=== PATIENT | male | born 2000 | race Caucasian/White ===

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

== ENCOUNTER 2023-04-09 01:43 | Observation (INO) | payer OTHER ==
[2023-04-09 02:03] LABS: Glucose,Whole Blood 134 mg/dL (70-110)
[2023-04-09 02:52] LABS: Basophils % (A) 0 %; Eosinophils # (A) 0.1 k/uL (0-0.7); Eosinophils % (A) 1 %; HCT 39.5 % (39.0-53.0); HGB 14.2 gm/dL (13.0-17.5); Lymphocytes # (A) 1.9 k/uL (1.0-4.8); Lymphocytes % (A) 13 %; MCH 31.9 pg (25.0-35.0); MCHC 35.9 g/dL (31.0-37.0); MCV 88.7 fL (80.0-100.0); Mean Platelet Volume 9.3; Monocytes # (A) 0.8 k/uL (0-1.0); Monocytes % (A) 5 %; Neutrophils # (A) 11.1 k/uL (1.3-7.7); Neutrophils % (A) 79 %; Platelet Count 225 k/uL (150-450); RBC 4.45 m/uL (4.30-5.90); RDW 12.2 % (11.5-15.5); WBC 14.1 k/uL (3.8-10.6)
[2023-04-09 02:55] LABS: ALT 19 U/L (4-49); AST 22 U/L (17-59); African American GFR (CKD) >90 (>60 ml/min/1.73 sqM); Albumin 4.5 g/dL (3.5-5.0); Alkaline Phosphatase 61 U/L (38-126); Amylase 70 U/L (30-110); Anion Gap 11 mmol/L; Blood Urea Nitrogen 16 mg/dL (9-20); Calcium 9.9 mg/dL (8.4-10.2); Carbon Dioxide 20 mmol/L (22-30); Chloride 104 mmol/L (98-107); Glucose 128 mg/dL (74-99); Lipase 93 U/L (23-300); Non-African American GFR(CKD) >90 (>60 ml/min/1.73 sqM); Potassium 3.6 mmol/L (3.5-5.1); Sodium 135 mmol/L (137-145); Total Bilirubin 0.7 mg/dL (0.2-1.3); Total Protein 7.2 g/dL (6.3-8.2)
[2023-04-09] MEDS: MORPHINE SULFATE 4 MG/ML SYRINGE IV STA (04:12)
--- NOTE | 2023-04-09 04:21 | CT ---
EXAMINATION TYPE: CT abdomen pelvis wo con DATE OF EXAM: 04/09/2023 HISTORY: Pt. c/o lower abdominal pain x1 day with intermittent N/V CT DLP: 390.3 mGycm. Automated Exposure Control for Dose Reduction was Utilized. TECHNIQUE: CT scan of the abdomen and pelvis is performed without oral or IV contrast. COMPARISON: NONE FINDINGS: Within the limitations of a non-contrast study, the following observations are made. LUNG BASES: No significant abnormality is appreciated. LIVER/GB: No significant abnormality is appreciated. PANCREAS: No significant abnormality is seen. SPLEEN: No significant abnormality is seen. ADRENALS: No significant abnormality is seen. KIDNEYS: No renal stones or hydronephrosis is seen bilaterally. BOWEL: No abnormal small or large bowel dilatation. Terminal ileum within normal limits on coronal im age 28. Appendix is abnormal with 12 mm appendicolith at the base. Appendix is dilated up to 16 mm ax ial image 85 with minimal adjacent fat stranding. No well-formed fluid collection or abscess. Slight tapering towards the tip. No free or mesenteric air. GENITAL ORGANS: No gross abnormality seen. LYMPH NODES: No greater than 1cm abdominal or pelvic lymph nodes are appreciated. OSSEOUS STRUCTURES: No significant abnormality is seen. OTHER: No significant additional abnormality is seen. IMPRESSION: CT findings consistent with uncomplicated acute appendicitis as detailed above. Critical results communicated to the ordering emergency room physician via telephone at time of dicta tion.
[2023-04-09] MEDS: AMPICILLIN-SULBACTAM 3 GM in SODIUM CHLORIDE 0.9% 100 ML IVPB STA (04:31)
[2023-04-09] MEDS: ONDANSETRON 4 MG/2 ML VIAL IVP STA (04:31)
[2023-04-09] MEDS: SODIUM CHLORIDE 0.9% 1,000 ML IV ONE ×2 (04:32→09:11)
[2023-04-09] MEDS ORDERED: NALOXONE 0.4 MG/ML 1 ML VIAL IV PRN (05:07)
[2023-04-09] MEDS ORDERED: ONDANSETRON 4 MG/2 ML VIAL IVP PRN (05:07)
[2023-04-09] MEDS: SODIUM CHLORIDE 0.9% 1,000 ML IV SCH (05:34)
[2023-04-09] MEDS: MORPHINE SULFATE 4 MG/ML SYRINGE IV PRN (05:43)
--- NOTE | 2023-04-09 07:16 | ED ---
Abdominal Pain HPI - General Chief Complaint: Abdominal Pain Stated Complaint: abd pain N/V Time Seen by Provider: 04/09/23 03:39 Source: patient Mode of arrival: ambulatory Limitations: no limitations - History of Present Illness MD Complaint: abdominal pain Onset/Timin -: hour(s) Location: RLQ Radiation: none Migration to: RLQ Severity: moderate Quality: aching Consistency: constant Improves With: nothing Worsens With: movement Associated Symptoms: nausea - Related Data Home Medications Medication Instructions Recorded Confirmed Azithromycin [Zithromax Z-pack] See Taper PO DIRECTED 05/26/16 05/26/16 Ibuprofen [Motrin] 200 - 400 mg PO Q6HR PRN 05/26/16 05/26/16 Allergies Allergy/AdvReac Type Severity Reaction Status Date / Time No Known Allergies Allergy Verified 05/26/16 20:22 Review of Systems ROS Statement: Those systems with pertinent positive or pertinent negative responses have been documented in the HPI. ROS Other: All systems not noted in ROS Statement are negative. Constitutional: Denies: fever, chills, weakness Respiratory: Denies: cough, dyspnea Cardiovascular: Denies: chest pain, palpitations, edema Gastrointestinal: Reports: abdominal pain, nausea, vomiting. Denies: diarrhea, constipation, hematemesis, melena, hematochezia Genitourinary: Denies: dysuria, hematuria Musculoskeletal: Denies: back pain Skin: Denies: rash Neurological: Denies: headache, weakness, numbness Past Medical History Past Medical History: No Reported History History of Any Multi-Drug Resistant Organisms: None Reported Past Surgical History: No Surgical Hx Reported Past Psychological History: No Psychological Hx Reported Smoking Status: Never smoker Past Alcohol Use History: None Reported Past Drug Use History: None Reported General Exam Limitations: no limitations General appearance: alert, in no apparent distress Head exam: Present: atraumatic, normocephalic Eye exam: Present: normal appearance. Absent: scleral icterus, conjunctival injection Neck exam: Present: normal inspection. Absent: full ROM Respiratory exam: Present: normal lung sounds bilaterally. Absent: respiratory distress, wheezes, rales, rhonchi, stridor Cardiovascular Exam: Present: regular rate, normal rhythm, normal heart sounds. Absent: systolic murmur, diastolic murmur, rubs, gallop GI/Abdominal exam: Present: soft, tenderness, guarding. Absent: distended, rigid, mass, pulsatile mass, hernia Extremities exam: Present: normal inspection, normal capillary refill. Absent: pedal edema, calf tenderness Back exam: Present: normal inspection. Absent: CVA tenderness (R), CVA t enderness (L) Neurological exam: Present: alert Skin exam: Present: warm, dry, intact, normal color. Absent: rash Course Vital Signs 04/09/23 04/09/23 01:50 05:40 Temperature 98.5 F Pulse Rate 113 H 96 Respiratory 18 20 Rate Blood Pressure 124/61 137/78 O2 Sat by Pulse 100 100 Oximetry Medical Decision Making - Lab Data Result diagrams: 04/09/23 02:03 04/09/23 02:03 Lab Results 04/09/23 04/09/23 04/09/23 Range/Units 02:01 02:03 02:03 WBC 14.1 H (3.8-10.6) k/uL RBC 4.45 (4.30-5.90) m/uL Hgb 14.2 (13.0-17.5) gm/dL Hct 39.5 (39.0-53.0) % MCV 88.7 (80.0-100.0) fL MCH 31.9 (25.0-35.0) pg MCHC 35.9 (31.0-37.0) g/dL RDW 12.2 (11.5-15.5) % Plt Count 225 (150-450) k/uL MPV 9.3 Neutrophils % 79 % Lymphocytes % 13 % Monocytes % 5 % Eosinophils % 1 % Basophils % 0 % Neutrophils # 11.1 H (1.3-7.7) k/uL Lymphocytes # 1.9 (1.0-4.8) k/uL Monocytes # 0.8 (0-1.0) k/uL Eosinophils # 0.1 (0-0.7) k/uL Basophils # 0.0 (0-0.2) k/uL Sodium 135 L (137-145) mmol/L Potassium 3.6 (3.5-5.1) mmol/L Chloride 104 (98-107) mmol/L Carbon Dioxide 20 L (22-30) mmol/L Anion Gap 11 mmol/L BUN 16 (9-20) mg/dL Creatinine 0.72 (0.66-1.25) mg/dL Est GFR (CKD-EPI)AfAm >90 (>60 ml/min/1.73 sqM) Est GFR (CKD-EPI)NonAf >90 (>60 ml/min/1.73 sqM) Glucose 128 H (74-99) mg/dL POC Glucose (mg/dL) 134 H (70-110) mg/dL POC Glu Model Builder Display ID Elizabeth Vargas Calcium 9.9 (8.4-10.2) mg/dL Total Bilirubin 0.7 (0.2-1.3) mg/dL AST 22 (17-59) U/L ALT 19 (4-49) U/L Alkaline Phosphatase 61 (38-126) U/L Total Protein 7.2 (6.3-8.2) g/dL Albumin 4.5 (3.5-5.0) g/dL Amylase 70 (30-110) U/L Lipase 93 (23-300) U/L Disposition Clinical Impression: Acute appendicitis Disposition: ADMITTED IP TO THIS HOSP Condition: Fair Is patient prescribed a controlled substance at d/c from ED?: No
[2023-04-09] MEDS ORDERED: MIDAZOLAM 2 MG/2 ML VIAL ONE (09:08)
[2023-04-09] MEDS ORDERED: DEXAMETHASONE SOD PHOSPHATE 4 MG/ML 1 ML VIAL ONE (09:08)
[2023-04-09] MEDS ORDERED: GLYCOPYRROLATE 0.2 MG/ML 2 ML VIAL ONE (09:08)
[2023-04-09] MEDS ORDERED: PROPOFOL 10 MG/ML 20 ML VIAL IV ONE (09:08)
[2023-04-09] MEDS ORDERED: fentaNYL (PF) 50 MCG/ML 2 ML AMP ONE (09:08)
[2023-04-09] MEDS ORDERED: ONDANSETRON 4 MG/2 ML VIAL ONE (09:08)
[2023-04-09] MEDS ORDERED: LIDOCAINE 1% INJ 10MG/ML (20 ML MDV) ONE (09:08)
[2023-04-09] MEDS ORDERED: ceFAZolin 1 GM/50 ML BAG (PMX) ONE (09:08)
[2023-04-09] MEDS ORDERED: ROCURONIUM 10 MG/ML (5 ML VIAL) IV ONE (09:08)
[2023-04-09] MEDS ORDERED: SUCCINYLCHOLINE CHLORIDE 200 MG/10 ML VIAL IV ONE (09:08)
[2023-04-09] MEDS ORDERED: NEOSTIGMINE 1 MG/ML 10 ML VIAL ONE (09:08)
[2023-04-09] MEDS: SODIUM CHLORIDE 0.9% 50 ML with ceFAZolin 2,000 MG IV ONE (09:11)
[2023-04-09] MEDS: BUPIVACAINE (PF) 0.25% 30 ML VIAL SQ ONE ×3 (09:26→09:58)
[2023-04-09] MEDS: LACTATED RINGERS 1,000 ML IV ONE (09:47)
[2023-04-09] MEDS: MEPERIDINE 50 MG/ML SYRINGE IVP ONE (10:48)
--- NOTE | 2023-04-09 11:24 | P.GSHP ---
History of Present Illness H&P Date: 04/09/23 Chief Complaint: RLQ pain Patient is a 22-year-old male with no past medical history presents with an acute onset of right lower quadrant.. Patient states that his right lower quadrant pain started the night prior to presentation on 2 PM. Endorses fevers and chills. No nausea or emesis. No prior episodes such as this. No sick contacts or recent travel. Admits to flatus but no recent bowel movement. No dysuria or hematuria. Upon presentation to [facility] CT abdomen and pelvis was obtained which showed evidence of acute uncomplicated appendicitis. - Review of Systems Comment: Negative except for as stated above Past Medical History Past Medical History: No Reported History History of Any Multi-Drug Resistant Organisms: None Reported Past Surgical History: No Surgical Hx Reported Past Psychological History: No Psychological Hx Reported Smoking Status: Never smoker Past Alcohol Use History: None Reported Past Drug Use History: None Reported Medications and Allergies Home Medications Medication Instructions Recorded Confirmed Type Azithromycin [Zithromax Z-pack] See Taper PO DIRECTED 05/26/16 05/26/16 History Ibuprofen [Motrin] 200 - 400 mg PO Q6HR PRN 05/26/16 05/26/16 History Allergies Allergy/AdvReac Type Severity Reaction Status Date / Time No Known Allergies Allergy Verified 05/26/16 20:22 Surgical - Exam Vital Signs Temp Pulse Resp BP Pulse Ox 98.5 F 113 H 18 124/61 100 04/09/23 01:50 04/09/23 01:50 04/09/23 01:50 04/09/23 01:50 04/09/23 01:50 Gen: AxO, NAD Pulm: non-labored respirations Abd: soft, tender in RLQ with guarding and rebound. Rovsing positive Extrem: no edema seen Results - Labs 04/09/23 02:03 04/09/23 02:03 Abnormal Lab Results - Last 24 Hours (Table) 04/09/23 04/09/23 04/09/23 Range/Units 02:01 02:03 02:03 WBC 14.1 H (3.8-10.6) k/uL Neutrophils # 11.1 H (1.3-7.7) k/uL Sodium 135 L (137-145) mmol/L Carbon Dioxide 20 L (22-30) mmol/L Glucose 128 H (74-99) mg/dL POC Glucose (mg/dL) 134 H (70-110) mg/dL Diabetes panel 04/09/23 Range/Units 02:03 Sodium 135 L (137-145) mmol/L Potassium 3.6 (3.5-5.1) mmol/L Chloride 104 (98-107) mmol/L Carbon Dioxide 20 L (22-30) mmol/L BUN 16 (9-20) mg/dL Creatinine 0.72 (0.66-1.25) mg/dL Glucose 128 H (74-99) mg/dL Calcium 9.9 (8.4-10.2) mg/dL AST 22 (17-59) U/L ALT 19 (4-49) U/L Alkaline Phosphatase 61 (38-126) U/L Total Protein 7.2 (6.3-8.2) g/dL Albumin 4.5 (3.5-5.0) g/dL Calcium panel 04/09/23 Range/Units 02:03 Calcium 9.9 (8.4-10.2) mg/dL Albumin 4.5 (3.5-5.0) g/dL Pituitary panel 04/09/23 Range/Units 02:03 Sodium 135 L (137-145) mmol/L Potassium 3.6 (3.5-5.1) mmol/L Chloride 104 (98-107) mmol/L Carbon Dioxide 20 L (22-30) mmol/L BUN 16 (9-20) mg/dL Creatinine 0.72 (0.66-1.25) mg/dL Glucose 128 H (74-99) mg/dL Calcium 9.9 (8.4-10.2) mg/dL Adrenal panel 04/09/23 Range/Units 02:03 Sodium 135 L (137-145) mmol/L Potassium 3.6 (3.5-5.1) mmol/L Chloride 104 (98-107) mmol/L Carbon Dioxide 20 L (22-30) mmol/L BUN 16 (9-20) mg/dL Creatinine 0.72 (0.66-1.25) mg/dL Glucose 128 H (74-99) mg/dL Calcium 9.9 (8.4-10.2) mg/dL Total Bilirubin 0.7 (0.2-1.3) mg/dL AST 22 (17-59) U/L ALT 19 (4-49) U/L Alkaline Phosphatase 61 (38-126) U/L Total Protein 7.2 (6.3-8.2) g/dL Albumin 4.5 (3.5-5.0) g/dL Assessment and Plan Assessment: Patient is a 22 year old male who presents with acute onset of RLQ pain and CT evidence concerning for acute uncomplicated appendicitis Plan: -NPO -IV ABX -IVF hydration -PRN pain and nausea control -Plan for Laparoscopic Appendectomy this morning Richmond Mchugh MD General Surgery
--- NOTE | 2023-04-09 11:30 | P.OP ---
Date of Procedure: 04/09/23 Preoperative Diagnosis: Acute Appendicitis Postoperative Diagnosis: Acute Appendicitis Procedure(s) Performed: Laparoscopic Appendectomy Anesthesia: FLASH Surgeon: Richmond Mchugh Estimated Blood Loss (ml): 5 Pathology: other (Appendix) Disposition: PACU Indications for Procedure: Patient is a 22-year-old male in no past medical history who presents with an acute onset of right lower quadrant pain and cross-sectional imaging findings concerning for acute uncomplicated appendicitis. Patient was seen and evaluated and based on his physical exam findings as well as imaging findings laparoscopic appendectomy was offered to the patient. Risks and benefits of operative intervention were discussed in detail up into including the risk of infection, bleeding, iatrogenic injury to adjacent structures, heart attack stroke and with induction of anesthesia, need to convert to open, staple line leak. Patient endorsed understanding of the risks and benefits and opted for operative intervention. Informed consent was obtained and the patient prior to procedure. Operative Findings: Acutely inflamed appendix without evidence of perforation. Description of Procedure: Patient was seen and evaluated in the preoperative area; after all questions and concerns were addressed patient was brought to the operating room and placed supine on the operating room table with left arm tucked. After induction of general anesthesia via endotracheal intubation a Amaya catheter was placed after which abdomen was prepped and draped in sterile fashion. A timeout was then performed which confirmed the right patient, right site, right procedure, ASA, fire risk, VTE and antibiotic prophylaxis, ALLERGIES. A supraumbilical midline vertical incision was then created with a #15 blade and carried through the dermis and subcutaneous tissues. Abundio clamp was used to grab the umbilical stalk and fascia at the base of the umbilical stalk was incised and Soler technique. Peritoneum was bluntly entered and 12 mm port was placed. Abdomen was insufflated and inspected. No iatrogenic injury drink abdominal entry was appreciated evidence of a distended and acutely inflamed appendix without perforation was seen. No free fluid was seen within the abdomen or pelvis. 2 additional 5 mm ports were placed under direct visualization; one in the midline suprapubic position as well as one in the left lower quadrant appendix was grasped and retracted anteriorly and LigaSure device was used to secure the mesoappendix and appendiceal artery within. Oakman endoscopic 45 mm blue load stapler was used to transect the appendix at its insertion into the cecum with out issue. Staple line was inspected and found to be intact and hemostatic. Appendix specimen was placed in an Endo Catch bag. Abdomen was inspected and no free fluid was seen. Staple line was once again inspected and found to be intact and hemostatic. Ports removed under direct was position and abdomen was desufflated. Appendix specimen was removed through the Soler port. All Vicryl suture was used to imbricate the fascia of the Soler port with good approximation. Local anesthetic was infiltrated into the port sites after which port sites were closed in layers. Patient subsequently reversed from anesthesia and taken to the recovery room in stable condition. Amaya catheter was removed at the end of the procedure. All sponge, needle, instruments counts were deemed correct by the nursing staff at the end of the procedure. Patient tolerated the procedure well. Richmond Mchugh MD General Surgery
[2023-04-09] MEDS ORDERED: HYDROmorphone 0.5 MG/0.5 ML SYRINGE IVP PRN (11:31)
[2023-04-09] MEDS: FAMOTIDINE 20 MG TAB PO SCH (11:37)
[2023-04-09 23:09] LABS: Appearance,Urine Clear (Clear); Bilirubin,Urine Negative (Negative); Blood,Urine Negative (Negative); Color,Urine Colorless; Glucose,Urine (UA) Negative (Negative); Ketones,Urine Negative (Negative); Leukocyte Esterase,Urine Negative (Negative); Nitrite,Urine Negative (Negative); PH, Urine 6.5 (5.0-8.0); Protein,Urine Negative (Negative); Specific Gravity,Urine 1.007 (1.001-1.035); Urobilinogen,Urine <2.0 mg/dL (<2.0)
[2023-04-10 07:53] VITALS: BP 123/85; PULSE 94; RESP 17; TEMP 98.5
[2023-04-10] MEDS: ACETAMINOPHEN TAB 500 MG TAB PO PRN (08:10)
--- NOTE | 2023-04-10 12:15 | P.DS ---
Providers Date of admission: 04/09/23 05:09 Expected date of discharge: 04/10/23 Attending physician: iJm Drummond Primary care physician: Stated None Hospital Course: Patient admitted through the emergency department on Tuesday morning. Patient had right lower quadrant pain and CAT scan showed acute appendicitis. Patient underwent laparoscopic appendectomy yesterday. Today is doing well. Minimal pain. No fevers. Tolerating diet. Would like to go home. Will plan discharge. [id number] pain meds at home discharge. Follow-up with myself 1 week. Patient Condition at Discharge: Fair Plan - Discharge Summary Discharge Rx Participant: No New Discharge Prescriptions: No Action estradioL [Estrace] 2 mg PO HS estradioL 4 mg PO DAILY Progesterone, Micronized [Progesterone] 100 mg PO HS Spironolactone 50 mg PO BID Discharge Medication List Progesterone, Micronized [Progesterone] 100 mg PO HS 04/09/23 [History] Spironolactone 50 mg PO BID 04/09/23 [History] estradioL 4 mg PO DAILY 04/09/23 [History] estradioL [Estrace] 2 mg PO HS 04/09/23 [History] Follow up Appointment(s)/Referral(s): None,Stated [Primary Care Provider] - 1 Week
== END 2023-04-10 13:38 | disposition home or self-care (01) ==
LOC: EC 01:43 → INTOOBSV 05:09 → 4SSUR 05:09 → UNDODISIN 04-10 13:38
PROVIDERS: ADMIT Surgery; ATTEND Surgery
DX: K35.80 Unspecified acute appendicitis (principal)
CPT/HCPCS: 47562; 36415; 88304; 80053; 82150; 83690; 85025; 81003; 74176; G0378 ×2; J2250; J0330; J2270; J1100; J2710; J2175; J2405; J0690 ×2; J2001; J3010; J0295; J2704; J0665